=== PATIENT | female | born 1990 | race Caucasian/White ===

== ENCOUNTER 2017-10-17 05:29 | Emergency (ER) | payer MEDICAID ==
[~2017-10-17] VITALS: Ht 149.9 cm; Wt 60.0 kg
[2017-10-17] MEDS ORDERED: ACETAMINOPHEN 325MG TABLET PO STA (08:34)
[2017-10-17 08:53] LABS: HCG SCREEN POSITIVE
[2017-10-17 09:00] LABS: CHLORIDE 105 mEq/L (98-107)
[2017-10-17 09:02] LABS: BASOPHILS % 0.7 % (0.0-2.0); EOSINOPHILS % 0.3 % (0.0-5.0); HEMATOCRIT. 37.5 % (36.0-48.0); HEMOGLOBIN. 12.7 g/dL (12.0-16.0); LYMPHOCYTES % 20.4 % (20.0-50.0); MEAN PLATELET VOLUME 9.4 fl (7.4-10.4); MONOCYTES % 3.3 % (2.0-8.0); NEUTROPHILS % 75.3 % (40.0-76.0); PLATELET 268 x1000/uL (130-400); RED BLOOD CELL COUNT 4.08 mill/uL (4.2-5.4); RED CELL DISTRIBUTION WIDTH 12.3 % (11.6-14.6)
[2017-10-17 09:11] LABS: B-HCG QUANTITATIVE 224 mIU/mL (<3)
[2017-10-17 09:50] LABS: CLARITY URINE CLEAR (CLEAR); COLOR URINE YELLOW (YELLOW); KETONES URINE NEGATIVE (NEGATIVE); LEUKOCYTE ESTERASE URINE 2+ (NEGATIVE); NITRITE URINE NEGATIVE (NEGATIVE); OCCULT BLOOD URINE 1+ (NEGATIVE); PROTEIN URINE NEGATIVE (NEGATIVE); SPECIFIC GRAVITY URINE 1.007 (1.005-1.030); UROBILINOGEN URINE 0.2 E.U./dL (0.2-1.0)
[2017-10-17 10:32] VITALS: BP 96/51
== END 2017-10-17 10:35 | disposition home or self-care (01) ==
LOC: ER 05:29
DX: N39.0 Urinary tract infection, site not specified (principal); R30.0 Dysuria
CPT/HCPCS: 36415; 76801; 76817; 80053; 81001; 84702; 84703; 85025; 87086; 99285; Z7610

== ENCOUNTER 2017-11-29 04:13 | Emergency (ER) | payer MEDICAID ==
[~2017-11-29] VITALS: Ht 149.9 cm; Wt 62.0 kg
[2017-11-29] MEDS ORDERED: SODIUM CHLORIDE 0.9% 1,000 ML IV ONE (05:12)
[2017-11-29 05:59] LABS: BASOPHILS % 0.8 % (0.0-2.0); EOSINOPHILS % 1.2 % (0.0-5.0); HEMATOCRIT. 37.3 % (36.0-48.0); HEMOGLOBIN. 12.8 g/dL (12.0-16.0); LYMPHOCYTES % 30.9 % (20.0-50.0); MEAN CORPUSCULAR HEMOGLOBIN 31.6 pg (28.0-32.0); MEAN CORPUSCULAR VOLUME 91.9 fL (81.0-99.0); MEAN PLATELET VOLUME 9.7 fl (7.4-10.4); NEUTROPHILS % 62.1 % (40.0-76.0); PLATELET 256 x1000/uL (130-400); PROTHROMBIN TIME 10.3 sec (9.4-11.6); RED BLOOD CELL COUNT 4.06 mill/uL (4.2-5.4); RED CELL DISTRIBUTION WIDTH 12.6 % (11.6-14.6)
[2017-11-29 06:09] LABS: CHLORIDE 107 mEq/L (98-107)
[2017-11-29 06:55] LABS: B-HCG QUANTITATIVE 13554 mIU/mL (<3)
[2017-11-29 07:09] LABS: CLARITY URINE CLEAR (CLEAR); COLOR URINE YELLOW (YELLOW); KETONES URINE NEGATIVE (NEGATIVE); LEUKOCYTE ESTERASE URINE NEGATIVE (NEGATIVE); NITRITE URINE NEGATIVE (NEGATIVE); OCCULT BLOOD URINE 3+ (NEGATIVE); PH URINE 5.5 (4.5-8.0); PROTEIN URINE NEGATIVE (NEGATIVE); SPECIFIC GRAVITY URINE 1.021 (1.005-1.030); UROBILINOGEN URINE 0.2 E.U./dL (0.2-1.0)
[2017-11-29 07:49] LABS: *AMPHETAMINES SCREEN URINE NEGATIVE (NEGATIVE); *BARBITURATES SCREEN URINE NEGATIVE (NEGATIVE); *BENZODIAZEPINES SCREEN URINE NEGATIVE (NEGATIVE); *COCAINE SCREEN URINE NEGATIVE (NEGATIVE); CANNABINOID URINE SCREEN NEGATIVE (NEGATIVE); METHADONE URINE SCREEN NEGATIVE (NEGATIVE); OPIATES URINE SCREEN NEGATIVE (NEGATIVE); PHENCYCLIDINE URINE SCREEN NEGATIVE (NEGATIVE)
[2017-11-29 09:43] VITALS: BP 95/62
== END 2017-11-29 09:56 | disposition home or self-care (01) ==
LOC: ER 04:13
DX: O03.4 Incomplete spontaneous abortion without complication (principal); Z3A.09 9 weeks gestation of pregnancy
CPT/HCPCS: 36415; 76801; 76817; 80053; 80305; 81003; 81025; 84702; 85025; 85610; 86850; 86900; 86901; 96360; 96361; 99285; J7030